=== PATIENT | female | born 1980 | race Caucasian/White ===

== ENCOUNTER 2018-03-25 14:14 | Inpatient (IN) | payer MEDICAID ==
[2018-03-25 15:07] LABS: ADD MAN DIFF? NO
[2018-03-25 15:09] LABS: BASOPHILS % 0.1 % (0.0-2.0); HEMATOCRIT 35.2 % (37.0-47.0); HEMOGLOBIN 11.7 g/dl (12.0-16.0); LYMPHOCYTES # 1.8 10^3/ul (0.8-2.9); LYMPHOCYTES % 24.5 % (15.0-51.0); MEAN CORPUSCULAR HEMOGLOBIN 28.7 pg (29.0-33.0); MEAN CORPUSCULAR HGB CONC 33.2 g/dl (32.0-37.0); MEAN CORPUSCULAR VOLUME 86.5 fl (82.0-101.0); MEAN PLATELET VOLUME 9.5 fl (7.4-10.4); MONOCYTE # 0.4 10^3/ul (0.3-0.9); MONOCYTES % 5.4 % (0.0-11.0); NEUTROPHILS % 69.6 % (39.0-77.0); PLATELET COUNT 312 10^3/UL (140-415); RED BLOOD COUNT 4.07 10^6/ul (4.20-5.40); RED CELL DISTRIBUTION WIDTH 13.2 % (11.5-14.5)
[2018-03-25 15:09] LABS: WHITE BLOOD COUNT 7.2 10^3/ul (4.8-10.8)
[2018-03-25 15:17] LABS: ADD UMIC YES; UR ASCORBIC ACID NEGATIVE (NEGATIVE); UR BACTERIA FEW /HPF (NONE SEEN); UR BILIRUBIN (Dip) NEGATIVE (NEGATIVE); UR BLOOD (Dip) NEGATIVE (NEGATIVE); UR CLARITY CLEAR (CLEAR); UR COLOR STRAW (YELLOW); UR GLUCOSE (Dip) NEGATIVE (NEGATIVE); UR KETONES (Dip) NEGATIVE (NEGATIVE); UR LEUKOCYTE ESTERASE (Dip) NEGATIVE Leu/ul (NEGATIVE); UR NITRITE (Dip) NEGATIVE (NEGATIVE); UR RBC 1 /HPF (0-5); UR SPECIFIC GRAVITY (Dip) 1.003 (1.003-1.030); UR TOTAL PROTEIN (Dip) 1+ mg/dl (NEGATIVE); UR UROBILINOGEN (Dip) NEGATIVE (NEGATIVE); UR WBC 2 /HPF (0-5)
[2018-03-25 15:29] LABS: INR 0.88; PARTIAL THROMBOPLASTIN TIME 31.8 Sec (23.0-35.0); PT RATIO 0.9
[2018-03-25 15:42] LABS: ALANINE AMINOTRANSFERASE 17 IU/L (13-69); ALBUMIN 2.8 g/dl (3.3-4.9); ALBUMIN/GLOBULIN RATIO 0.82; ALKALINE PHOSPHATASE 93 IU/L (42-121); ANION GAP 10 (8-16); ASPARTATE AMINO TRANSFERASE 20 IU/L (15-46); BILIRUBIN,INDIRECT 0.4 mg/dl (0-1.1); BILIRUBIN,TOTAL 0.4 mg/dl (0.2-1.3); BLOOD UREA NITROGEN 4 mg/dl (7-20); CALCIUM 9.7 mg/dl (8.4-10.2); CARBON DIOXIDE 22 mmol/L (21-31); CHLORIDE 107 mmol/L (97-110); CREATININE 0.48 mg/dl (0.44-1.00); GLUCOSE 112 mg/dl (70-220); POTASSIUM 3.8 mmol/L (3.5-5.1); SODIUM 135 mmol/L (135-144); TOTAL PROTEIN 6.2 g/dl (6.1-8.1); URIC ACID 5.8 mg/dl (3.1-7.9)
[2018-03-25] MEDS ORDERED: ACETAMINOPHEN 325 MG TAB PO (18:00)
[2018-03-25] MEDS: LACTATED RINGER'S 1,000 ML IV (18:25)
[2018-03-25] MEDS: BETAMET NA PHOS/AC(6 MG/ML) 5ML INJ IM (18:25)
[2018-03-25] MEDS: MAGNESIUM SULFATE 4 GM/100 ML 100 ML IV (18:27)
[2018-03-25] MEDS: MAGNESIUM SULFATE 20 GM/500 ML 500 ML IV (19:50)
[2018-03-25] MEDS ORDERED: LABETALOL HCL 20MG INJ IV (21:00)
[2018-03-25] MEDS: LABETALOL 200 MG TAB PO ×2 (21:30→22:35)
[2018-03-26 01:26] LABS: MAGNESIUM 3.7 mg/dl (1.7-2.5)
[2018-03-26] MEDS: LACTATED RINGER'S 1,000 ML IV ×2 (05:24→18:44)
[2018-03-26] MEDS: MAGNESIUM SULFATE 20 GM/500 ML 500 ML IV ×2 (05:28→16:23)
[2018-03-26 07:27] LABS: MAGNESIUM 4.2 mg/dl (1.7-2.5)
[2018-03-26] MEDS: LABETALOL 200 MG TAB PO ×2 (09:16→21:16)
[2018-03-26] MEDS: DOCUSATE SODIUM 100 MG CAP PO (09:24)
[2018-03-26] MEDS: FERROUS SULFATE (EC) 325 MG TAB PO (09:24)
[2018-03-26] MEDS: PRENATAL VITAMIN PO (09:24)
[2018-03-26 12:16] LABS: MAGNESIUM 4.4 mg/dl (1.7-2.5)
[2018-03-26 15:42] LABS: MAGNESIUM 4.5 mg/dl (1.7-2.5)
[2018-03-26 17:11] LABS: COLLECTION PERIOD 24 hrs
[2018-03-26 17:37] LABS: COLLECTION PERIOD 24 hrs; CREATININE CLEARANCE 207.5 mls/min (84.0-162.0); CREATININE,URINE RANDOM 44.81 mg/dl (20-320); SCRET 0.48 mg/dl (0.44-1.00); VOLUME 3200 ml/24hrs
[2018-03-26 18:23] LABS: VOLUME 3200 mls
[2018-03-26] MEDS: BETAMET NA PHOS/AC(6 MG/ML) 5ML INJ IM (18:45)
[2018-03-27] MEDS: LACTATED RINGER'S 1,000 ML IV (03:34)
[2018-03-27] MEDS: DOCUSATE SODIUM 100 MG CAP PO (09:04)
[2018-03-27] MEDS: FERROUS SULFATE (EC) 325 MG TAB PO (09:04)
[2018-03-27] MEDS: LABETALOL 200 MG TAB PO (09:04)
[2018-03-27] MEDS: PRENATAL VITAMIN PO (09:04)
== END 2018-03-27 15:18 | disposition home or self-care (01) | DRG 833 ==
LOC: OBT 14:14 → L-D 14:14 → OBT 18:00 → L-D 18:00
DX: O11.3 Pre-existing hypertension with pre-eclampsia, third trimester (principal); O09.523 Supervision of elderly multigravida, third trimester; O40.3XX0 Polyhydramnios, third trimester, not applicable or unspecified; Z3A.31 31 weeks gestation of pregnancy
CPT/HCPCS: 76815; 76818; 80053; 81001; 82575; 83036; 83735; 84156; 84560; 85025; 85384; 85610; 85730

== ENCOUNTER 2018-03-28 10:24 | Inpatient (IN) | payer MEDICAID ==
[2018-03-28 11:52] LABS: ADD MAN DIFF? NO
[2018-03-28 11:59] LABS: WHITE BLOOD COUNT 9.1 10^3/ul (4.8-10.8)
[2018-03-28 11:59] LABS: BASOPHILS % 0.1 % (0.0-2.0); HEMATOCRIT 34.4 % (37.0-47.0); HEMOGLOBIN 11.2 g/dl (12.0-16.0); LYMPHOCYTES # 2.2 10^3/ul (0.8-2.9); LYMPHOCYTES % 24.1 % (15.0-51.0); MEAN CORPUSCULAR HEMOGLOBIN 29.2 pg (29.0-33.0); MEAN CORPUSCULAR HGB CONC 32.6 g/dl (32.0-37.0); MEAN CORPUSCULAR VOLUME 89.8 fl (82.0-101.0); MEAN PLATELET VOLUME 9.6 fl (7.4-10.4); MONOCYTE # 0.6 10^3/ul (0.3-0.9); MONOCYTES % 6.9 % (0.0-11.0); NEUTROPHIL # 6.2 10^3/ul (1.6-7.5); NEUTROPHILS % 68.1 % (39.0-77.0); PLATELET COUNT 293 10^3/UL (140-415); RED BLOOD COUNT 3.83 10^6/ul (4.20-5.40)
[2018-03-28 12:16] LABS: INR 0.87; PARTIAL THROMBOPLASTIN TIME 28.7 Sec (23.0-35.0); PROTIME 11.9 Sec (11.9-14.9); PT RATIO 0.9
[2018-03-28 12:37] LABS: ALBUMIN/GLOBULIN RATIO 0.93; ANION GAP 8 (5-13); BILIRUBIN,TOTAL 0.3 mg/dl (0.2-1.3)
[2018-03-28 12:38] LABS: ALANINE AMINOTRANSFERASE 29 IU/L (13-69); ALKALINE PHOSPHATASE 84 IU/L (42-121); ASPARTATE AMINO TRANSFERASE 31 IU/L (15-46); BILIRUBIN,INDIRECT 0.3 mg/dl (0-1.1); BLOOD UREA NITROGEN 11 mg/dl (7-20); CALCIUM 9.3 mg/dl (8.4-10.2); CARBON DIOXIDE 22 mmol/L (21-31); CHLORIDE 110 mmol/L (97-110); CREATININE 0.52 mg/dl (0.44-1.00); GLUCOSE 126 mg/dl (70-220); POTASSIUM 4.1 mmol/L (3.5-5.1); SODIUM 140 mmol/L (135-144); TOTAL PROTEIN 6.2 g/dl (6.1-8.1); URIC ACID 7.1 mg/dl (3.1-7.9)
[2018-03-28 13:00] LABS: ADD UMIC YES; UR ASCORBIC ACID NEGATIVE (NEGATIVE); UR BACTERIA FEW /HPF (NONE SEEN); UR BILIRUBIN (Dip) NEGATIVE (NEGATIVE); UR BLOOD (Dip) NEGATIVE (NEGATIVE); UR CLARITY SLIGHTLY CLOUDY (CLEAR); UR COLOR YELLOW (YELLOW); UR GLUCOSE (Dip) NEGATIVE (NEGATIVE); UR KETONES (Dip) NEGATIVE (NEGATIVE); UR LEUKOCYTE ESTERASE (Dip) TRACE Leu/ul (NEGATIVE); UR NITRITE (Dip) NEGATIVE (NEGATIVE); UR RBC 2 /HPF (0-5); UR SPECIFIC GRAVITY (Dip) 1.021 (1.003-1.030); UR SQUAMOUS EPITHELIAL CELL FEW /HPF (FEW); UR TOTAL PROTEIN (Dip) 2+ mg/dl (NEGATIVE); UR UROBILINOGEN (Dip) 1+ mg/dL (NEGATIVE); UR WBC 5 /HPF (0-5)
[2018-03-28] MEDS: LABETALOL HCL 20MG INJ IV (14:30)
[2018-03-28] MEDS ORDERED: METHYLERGONOVINE 0.2 MG INJ IM (14:30)
[2018-03-28] MEDS ORDERED: OXYTOCIN 30 UNITS/LR 500 ML IV ×2 (14:30)
[2018-03-28] MEDS ORDERED: MISOPROSTOL 200 MCG TAB PR (14:30)
[2018-03-28] MEDS ORDERED: CARBOPROST 250 MCG INJ IM (14:30)
[2018-03-28] MEDS: LACTATED RINGER'S 1,000 ML IV ×2 (14:58→18:22)
[2018-03-28] MEDS ORDERED: CEFAZOLIN 3 GM in DEXTROSE 5% 100 ML IV (15:00)
[2018-03-28] MEDS: MAGNESIUM SULFATE 4 GM/100 ML 100 ML IVPB (15:02)
[2018-03-28] MEDS: MAGNESIUM SULFATE 20 GM/500 ML 500 ML IV (15:35)
[2018-03-28 18:53] LABS: MAGNESIUM 3.3 mg/dl (1.7-2.5)
[2018-03-28] MEDS: LABETALOL 200 MG TAB PO (21:10)
[2018-03-28 21:32] LABS: RAPID PLASMA REAGIN NONREACTIVE (NR)
[2018-03-29] MEDS: MAGNESIUM SULFATE 20 GM/500 ML 500 ML IV ×3 (00:49→20:30)
[2018-03-29 06:23] LABS: MAGNESIUM 4.3 mg/dl (1.7-2.5)
[2018-03-29] MEDS: LACTATED RINGER'S 1,000 ML IV ×2 (07:20→19:35)
[2018-03-29] MEDS: LABETALOL 200 MG TAB PO ×2 (09:19→21:15)
[2018-03-29] MEDS: ASPIRIN 81 MG TAB PO (10:13)
[2018-03-29 13:45] LABS: MAGNESIUM 4.2 mg/dl (1.7-2.5)
[2018-03-30] MEDS: LACTATED RINGER'S 1,000 ML IV ×3 (02:55→16:48)
[2018-03-30] MEDS: MAGNESIUM SULFATE 20 GM/500 ML 500 ML IV ×2 (02:55→19:55)
[2018-03-30 08:04] LABS: MAGNESIUM 3.1 mg/dl (1.7-2.5)
[2018-03-30] MEDS: FERROUS SULFATE (EC) 325 MG TAB PO (08:59)
[2018-03-30] MEDS: PRENATAL VITAMIN PO (09:00)
[2018-03-30] MEDS: LABETALOL 200 MG TAB PO (09:01)
[2018-03-30] MEDS: ASPIRIN 81 MG TAB PO (10:34)
[2018-03-30 20:18] LABS: ADD MAN DIFF? NO
[2018-03-30 20:22] LABS: BASOPHILS % 0.1 % (0.0-2.0); HEMATOCRIT 31.1 % (37.0-47.0); HEMOGLOBIN 10.3 g/dl (12.0-16.0); LYMPHOCYTES % 27.2 % (15.0-51.0); MEAN CORPUSCULAR HEMOGLOBIN 29.2 pg (29.0-33.0); MEAN CORPUSCULAR HGB CONC 33.1 g/dl (32.0-37.0); MEAN CORPUSCULAR VOLUME 88.1 fl (82.0-101.0); MEAN PLATELET VOLUME 9.3 fl (7.4-10.4); MONOCYTE # 0.3 10^3/ul (0.3-0.9); MONOCYTES % 4.1 % (0.0-11.0); NEUTROPHIL # 5.1 10^3/ul (1.6-7.5); NEUTROPHILS % 68.3 % (39.0-77.0); PLATELET COUNT 269 10^3/UL (140-415); RED BLOOD COUNT 3.53 10^6/ul (4.20-5.40); RED CELL DISTRIBUTION WIDTH 13.8 % (11.5-14.5)
[2018-03-30 20:22] LABS: WHITE BLOOD COUNT 7.4 10^3/ul (4.8-10.8)
[2018-03-30 20:42] LABS: ALANINE AMINOTRANSFERASE 34 IU/L (13-69); ALBUMIN 2.4 g/dl (3.3-4.9); ALKALINE PHOSPHATASE 92 IU/L (42-121); ANION GAP 6 (5-13); ASPARTATE AMINO TRANSFERASE 29 IU/L (15-46); BILIRUBIN,INDIRECT 0.5 mg/dl (0-1.1); BILIRUBIN,TOTAL 0.5 mg/dl (0.2-1.3); BLOOD UREA NITROGEN 7 mg/dl (7-20); CALCIUM 8.9 mg/dl (8.4-10.2); CARBON DIOXIDE 25 mmol/L (21-31); CHLORIDE 106 mmol/L (97-110); CREATININE 0.54 mg/dl (0.44-1.00); GLUCOSE 135 mg/dl (70-220); INR 0.91; PARTIAL THROMBOPLASTIN TIME 30.3 Sec (23.0-35.0); POTASSIUM 3.8 mmol/L (3.5-5.1); PROTIME 12.3 Sec (11.9-14.9); SODIUM 137 mmol/L (135-144); TOTAL PROTEIN 5.4 g/dl (6.1-8.1)
[2018-03-30 20:42] LABS: URIC ACID 6.1 mg/dl (3.1-7.9)
[2018-03-30 20:42] LABS: MAGNESIUM 2.7 mg/dl (1.7-2.5)
[2018-03-30] MEDS ORDERED: LABETALOL 200 MG TAB PO (21:00)
[2018-03-30] MEDS: LABETALOL 100 MG TAB PO (21:06)
[2018-03-31] MEDS: LACTATED RINGER'S 1,000 ML IV ×4 (05:26→19:36)
[2018-03-31] MEDS: LABETALOL 100 MG TAB PO (05:28)
[2018-03-31] MEDS: ASPIRIN 81 MG TAB PO (05:33)
[2018-03-31] MEDS: LABETALOL 200 MG TAB PO (13:24)
[2018-03-31 14:07] LABS: ADD MAN DIFF? NO
[2018-03-31 14:10] LABS: HEMATOCRIT 34.9 % (37.0-47.0); HEMOGLOBIN 11.2 g/dl (12.0-16.0); LYMPHOCYTES # 1.8 10^3/ul (0.8-2.9); MEAN CORPUSCULAR HGB CONC 32.1 g/dl (32.0-37.0); MEAN CORPUSCULAR VOLUME 90.4 fl (82.0-101.0); MEAN PLATELET VOLUME 9.9 fl (7.4-10.4); MONOCYTE # 0.3 10^3/ul (0.3-0.9); MONOCYTES % 3.9 % (0.0-11.0); NEUTROPHIL # 5.2 10^3/ul (1.6-7.5); NEUTROPHILS % 70.7 % (39.0-77.0); PLATELET COUNT 293 10^3/UL (140-415); RED BLOOD COUNT 3.86 10^6/ul (4.20-5.40); RED CELL DISTRIBUTION WIDTH 13.8 % (11.5-14.5)
[2018-03-31 14:10] LABS: WHITE BLOOD COUNT 7.4 10^3/ul (4.8-10.8)
[2018-03-31 14:29] LABS: ALANINE AMINOTRANSFERASE 37 IU/L (13-69); ALBUMIN 2.6 g/dl (3.3-4.9); ALBUMIN/GLOBULIN RATIO 0.78; ALKALINE PHOSPHATASE 93 IU/L (42-121); ANION GAP 8 (5-13); ASPARTATE AMINO TRANSFERASE 35 IU/L (15-46); BILIRUBIN,INDIRECT 0.5 mg/dl (0-1.1); BILIRUBIN,TOTAL 0.5 mg/dl (0.2-1.3); BLOOD UREA NITROGEN 4 mg/dl (7-20); CALCIUM 9.5 mg/dl (8.4-10.2); CARBON DIOXIDE 23 mmol/L (21-31); CHLORIDE 108 mmol/L (97-110); CREATININE 0.54 mg/dl (0.44-1.00); GLUCOSE 83 mg/dl (70-220); POTASSIUM 4.5 mmol/L (3.5-5.1); SODIUM 139 mmol/L (135-144); TOTAL PROTEIN 5.9 g/dl (6.1-8.1); URIC ACID 6.5 mg/dl (3.1-7.9)
[2018-03-31 14:33] LABS: INR 0.84; PROTIME 11.6 Sec (11.9-14.9); PT RATIO 0.9
[2018-03-31 14:34] LABS: PARTIAL THROMBOPLASTIN TIME 29.4 Sec (23.0-35.0)
[2018-03-31 15:19] LABS: ADD UMIC YES; UR ASCORBIC ACID NEGATIVE (NEGATIVE); UR BACTERIA FEW /HPF (NONE SEEN); UR BILIRUBIN (Dip) NEGATIVE (NEGATIVE); UR BLOOD (Dip) NEGATIVE (NEGATIVE); UR CLARITY CLEAR (CLEAR); UR COLOR YELLOW (YELLOW); UR GLUCOSE (Dip) NEGATIVE (NEGATIVE); UR KETONES (Dip) 1+ mg/dL (NEGATIVE); UR LEUKOCYTE ESTERASE (Dip) NEGATIVE Leu/ul (NEGATIVE); UR NITRITE (Dip) NEGATIVE (NEGATIVE); UR RBC 2 /HPF (0-5); UR SPECIFIC GRAVITY (Dip) 1.013 (1.003-1.030); UR SQUAMOUS EPITHELIAL CELL FEW /HPF (FEW); UR TOTAL PROTEIN (Dip) 2+ mg/dl (NEGATIVE); UR UROBILINOGEN (Dip) NEGATIVE (NEGATIVE); UR WBC 1 /HPF (0-5)
[2018-03-31] MEDS ORDERED: MIDAZOLAM 1 MG/ML 2 ML INJ IV (16:00)
[2018-03-31] MEDS ORDERED: MEPERIDINE 25 MG INJ IV (16:00)
[2018-03-31] MEDS ORDERED: HYDROmorphONE 0.5 MG/0.5 ML SYG IV ×2 (16:00)
[2018-03-31] MEDS ORDERED: hydrALAzine 20 MG INJ IV (16:00)
[2018-03-31] MEDS ORDERED: ZOLPIDEM 5 MG TAB PO (16:00)
[2018-03-31] MEDS ORDERED: LABETALOL HCL 20MG INJ IV ×2 (16:00→18:30)
[2018-03-31] MEDS ORDERED: DIPHENHYDRAMINE 50 MG INJ IV ×2 (16:00)
[2018-03-31] MEDS ORDERED: KETOROLAC 30 MG INJ IV (16:00)
[2018-03-31] MEDS ORDERED: NALBUPHINE HCL (10 MG/1 ML) INJ IV (16:00)
[2018-03-31] MEDS ORDERED: NALOXONE (0.4 MG/ML) INJ IV (16:00)
[2018-03-31] MEDS ORDERED: ONDANSETRON 4 MG INJ IV ×2 (16:00)
[2018-03-31] MEDS: CITRIC ACID/NA CITRATE 30 ML CUP PO (16:33)
[2018-03-31] MEDS ORDERED: morphine SULFATE/PF (10 MG/10 ML) INJ (16:48)
[2018-03-31] MEDS ORDERED: BUPIVACAINE 0.75%/DEXT (SPINAL) 2 ML INJ (16:48)
[2018-03-31] MEDS: CEFAZOLIN 2 GM/50 ML (PMX) 50 ML IVPB (17:10)
[2018-03-31] MEDS ORDERED: OXYTOCIN 10 UNIT INJ ×2 (17:23→18:17)
[2018-03-31] MEDS ORDERED: MIDAZOLAM 1 MG/ML 2 ML INJ ×3 (17:25→17:47)
[2018-03-31] MEDS ORDERED: ONDANSETRON 4 MG INJ (17:26)
[2018-03-31] MEDS ORDERED: FENTAnyl 50 MCG/ML VIAL (17:49)
[2018-03-31] MEDS ORDERED: LABETALOL HCL 20MG INJ (18:14)
[2018-03-31] MEDS ORDERED: KETOROLAC 30 MG INJ (18:15)
[2018-03-31] MEDS ORDERED: OXYCODONE/ACETAMINOPHEN (5/325) TAB PO ×2 (18:30)
[2018-03-31] MEDS ORDERED: CARBOPROST 250 MCG INJ IM (18:30)
[2018-03-31] MEDS ORDERED: OXYTOCIN 30 UNITS/LR 500 ML IV (18:30)
[2018-03-31] MEDS ORDERED: METHYLERGONOVINE 0.2 MG INJ IM (18:30)
[2018-03-31] MEDS ORDERED: MISOPROSTOL 200 MCG TAB PR (18:30)
[2018-03-31] MEDS ORDERED: LANOLIN 7 GM TUBE TOP (18:30)
[2018-03-31] MEDS: hydrALAzine 20 MG INJ IV (18:37)
[2018-03-31] MEDS: MAGNESIUM SULFATE 20 GM/500 ML 500 ML IV (19:28)
[2018-04-01 01:00] LABS: MAGNESIUM 3.3 mg/dl (1.7-2.5)
[2018-04-01] MEDS: OXYTOCIN 30 UNITS/LR 500 ML IV (03:48)
[2018-04-01] MEDS: MAGNESIUM SULFATE 20 GM/500 ML 500 ML IV ×2 (05:45→16:28)
[2018-04-01 05:55] LABS: ADD MAN DIFF? NO
[2018-04-01 06:01] LABS: BASOPHILS % 0.1 % (0.0-2.0); HEMATOCRIT 34.2 % (37.0-47.0); HEMOGLOBIN 11.1 g/dl (12.0-16.0); LYMPHOCYTES # 1.5 10^3/ul (0.8-2.9); LYMPHOCYTES % 13.5 % (15.0-51.0); MEAN CORPUSCULAR HEMOGLOBIN 29.3 pg (29.0-33.0); MEAN CORPUSCULAR HGB CONC 32.5 g/dl (32.0-37.0); MEAN CORPUSCULAR VOLUME 90.2 fl (82.0-101.0); MEAN PLATELET VOLUME 9.6 fl (7.4-10.4); MONOCYTE # 0.4 10^3/ul (0.3-0.9); MONOCYTES % 4.1 % (0.0-11.0); NEUTROPHIL # 8.9 10^3/ul (1.6-7.5); NEUTROPHILS % 81.8 % (39.0-77.0); PLATELET COUNT 278 10^3/UL (140-415); RED BLOOD COUNT 3.79 10^6/ul (4.20-5.40)
[2018-04-01 06:01] LABS: WHITE BLOOD COUNT 10.9 10^3/ul (4.8-10.8)
[2018-04-01 06:37] LABS: MAGNESIUM 3.5 mg/dl (1.7-2.5)
[2018-04-01] MEDS: LABETALOL 100 MG TAB PO ×3 (07:02→22:23)
[2018-04-01 13:28] LABS: MAGNESIUM 4.1 mg/dl (1.7-2.5)
[2018-04-01] MEDS: LACTATED RINGER'S 1,000 ML IV ×2 (13:33→18:23)
[2018-04-01] MEDS: INFLUENZA VIRUS VACCINE 0.5 ML (DISPENSING) IM* (14:23)
[2018-04-01] MEDS: IBUPROFEN 800 MG TAB PO (22:24)
[2018-04-02] MEDS: LACTATED RINGER'S 1,000 ML IV (02:23)
[2018-04-02] MEDS: IBUPROFEN 800 MG TAB PO ×4 (05:42→22:11)
[2018-04-02] MEDS: LABETALOL 100 MG TAB PO ×3 (05:44→22:11)
[2018-04-02] MEDS ORDERED: IBUPROFEN 800 MG TAB PO (22:00)
[2018-04-03] MEDS: IBUPROFEN 800 MG TAB PO ×3 (05:48→22:13)
[2018-04-03] MEDS: LABETALOL 100 MG TAB PO ×3 (05:49→22:16)
[2018-04-03] MEDS: DIPHTH/TET/ACEL PERTUSS (ADULT) 0.5 ML VIAL IM* (07:57)
[2018-04-03] MEDS: NIFEdipine (XL) 60 MG TAB PO (20:35)
[2018-04-04] MEDS: LABETALOL 100 MG TAB PO ×3 (06:09→21:39)
[2018-04-04] MEDS: IBUPROFEN 800 MG TAB PO ×3 (06:09→21:40)
[2018-04-04] MEDS: NIFEdipine (XL) 60 MG TAB PO (08:29)
[2018-04-04] MEDS: IOHEXOL 300MG/ML 150 ML BTL (15:29)
[2018-04-04] MEDS: SOD CHLORIDE 0.9% 100 ML (15:29)
[2018-04-05] MEDS: IBUPROFEN 800 MG TAB PO ×2 (05:44→14:16)
[2018-04-05] MEDS: LABETALOL 100 MG TAB PO ×2 (05:45→14:17)
[2018-04-05] MEDS: NIFEdipine (XL) 60 MG TAB PO (09:00)
== END 2018-04-05 18:09 | disposition home or self-care (01) | DRG 788 ==
LOC: OBT 10:24 → L-D 10:24 → OBT 14:10 → L-D 14:10 → PP1 03-31 21:53 → L-D 15:03
PROC: 10D00Z1 Extraction of Products of Conception, Low, Open Approach (ICD-10-PCS; principal; 2018-03-31)
DX: O11.4 Pre-existing hypertension with pre-eclampsia, complicating childbirth (principal); O10.02 Pre-existing essential hypertension complicating childbirth; O13.4 Gestational [pregnancy-induced] hypertension without significant proteinuria, complicating childbirth; O99.214 Obesity complicating childbirth; E66.01 Morbid (severe) obesity due to excess calories; O34.219 Maternal care for unspecified type scar from previous cesarean delivery; O32.2XX0 Maternal care for transverse and oblique lie, not applicable or unspecified; O34.13 Maternal care for benign tumor of corpus uteri, third trimester; Z37.0 Single live birth; Z3A.32 32 weeks gestation of pregnancy; Z23 Encounter for immunization
CPT/HCPCS: 74177; 76816; 76818; 80053; 81001; 83735; 84560; 85025; 85610; 85730; 86592; 86850; 86900; 86901; 90686; 99464

== ENCOUNTER 2018-04-17 09:26 | Emergency (ER) | payer OTHER, MEDICAID ==
[2018-04-17 10:52] LABS: ADD MAN DIFF? NO
[2018-04-17 10:53] LABS: WHITE BLOOD COUNT 9.2 10^3/ul (4.8-10.8)
[2018-04-17 10:53] LABS: BASOPHILS % 0.1 % (0.0-2.0); HEMATOCRIT 34.8 % (37.0-47.0); HEMOGLOBIN 10.8 g/dl (12.0-16.0); LYMPHOCYTES # 0.6 10^3/ul (0.8-2.9); LYMPHOCYTES % 6.6 % (15.0-51.0); MEAN CORPUSCULAR HEMOGLOBIN 27.8 pg (29.0-33.0); MEAN CORPUSCULAR VOLUME 89.7 fl (82.0-101.0); MEAN PLATELET VOLUME 8.9 fl (7.4-10.4); MONOCYTE # 0.4 10^3/ul (0.3-0.9); MONOCYTES % 4.8 % (0.0-11.0); NEUTROPHIL # 8.1 10^3/ul (1.6-7.5); NEUTROPHILS % 87.8 % (39.0-77.0); PLATELET COUNT 442 10^3/UL (140-415); RED BLOOD COUNT 3.88 10^6/ul (4.20-5.40); RED CELL DISTRIBUTION WIDTH 13.6 % (11.5-14.5)
[2018-04-17] MEDS: CEFTRIAXONE 1 GM/50 ML (PMX) 50 ML IVPB (11:03)
[2018-04-17 11:04] LABS: ADD UMIC YES; UR ASCORBIC ACID NEGATIVE (NEGATIVE); UR BACTERIA MODERATE /HPF (NONE SEEN); UR BILIRUBIN (Dip) NEGATIVE (NEGATIVE); UR BLOOD (Dip) 3+ mg/dL (NEGATIVE); UR CLARITY CLOUDY (CLEAR); UR COLOR YELLOW (YELLOW); UR GLUCOSE (Dip) NEGATIVE (NEGATIVE); UR KETONES (Dip) NEGATIVE (NEGATIVE); UR LEUKOCYTE ESTERASE (Dip) 3+ Leu/ul (NEGATIVE); UR MUCUS FEW /HPF (NONE SEEN); UR NITRITE (Dip) POSITIVE (NEGATIVE); UR RBC 13 /HPF (0-5); UR SPECIFIC GRAVITY (Dip) 1.015 (1.003-1.030); UR SQUAMOUS EPITHELIAL CELL FEW /HPF (FEW); UR TOTAL PROTEIN (Dip) 2+ mg/dl (NEGATIVE); UR UROBILINOGEN (Dip) NEGATIVE (NEGATIVE); UR WBC > 182 /HPF (0-5)
[2018-04-17] MEDS: SOD CHLORIDE 0.9% 1,000 ML IV (11:04)
[2018-04-17 11:11] LABS: ALANINE AMINOTRANSFERASE 42 IU/L (13-69); ALBUMIN 3.6 g/dl (3.3-4.9); ALBUMIN/GLOBULIN RATIO 1.33; ALKALINE PHOSPHATASE 91 IU/L (42-121); ANION GAP 13 (5-13); ASPARTATE AMINO TRANSFERASE 29 IU/L (15-46); BILIRUBIN,INDIRECT 1.1 mg/dl (0-1.1); BILIRUBIN,TOTAL 1.1 mg/dl (0.2-1.3); BLOOD UREA NITROGEN 13 mg/dl (7-20); CARBON DIOXIDE 25 mmol/L (21-31); CHLORIDE 103 mmol/L (97-110); CREATININE 0.71 mg/dl (0.44-1.00); Estimated GFR > 60 mL/min (>60); GLUCOSE 116 mg/dl (70-220); POTASSIUM 5.4 mmol/L (3.5-5.1); SODIUM 141 mmol/L (135-144); TOTAL PROTEIN 6.3 g/dl (6.1-8.1)
[2018-04-17 11:14] LABS: INR 0.99; PROTIME 13.2 Sec (11.9-14.9)
[2018-04-17 11:16] LABS: PARTIAL THROMBOPLASTIN TIME 32.4 Sec (23.0-35.0)
[2018-04-17 11:22] LABS: TROPONIN-I < 0.012 ng/ml (0.000-0.120)
== END 2018-04-17 12:24 | disposition home or self-care (01) ==
LOC: E/R 09:26
DX: N12 Tubulo-interstitial nephritis, not specified as acute or chronic (principal); R07.9 Chest pain, unspecified; Z79.82 Long term (current) use of aspirin
CPT/HCPCS: 36415; 71045; 80053; 81001; 81025; 83605; 84484; 85025; 85610; 85730; 87040; 87086; 93005; 96365; 99285-25